=== PATIENT | male | born 1975 | race Caucasian/White ===

== ENCOUNTER 2019-05-14 13:03 | Emergency (ER) | payer OTHER ==
[~2019-05-14] VITALS: Ht 185.4 cm; Wt 117.0 kg
--- NOTE | 2019-05-14 14:19 | NUR ---
PT TO ROOM FROM LOBBY IN [facility] AT THIS TIME.
[2019-05-14] MEDS ORDERED: ASPIRIN 81 MG TABLET CHEW ONE (14:44)
--- NOTE | 2019-05-14 14:48 | NUR ---
PT HAS CO OF WEANKNESS, SOB, AND COUGH , PT STATES FOR A FEWS WEEK. PT RECIEVED ABX, TESSALON BELTRANLS, STERIODS OUTPATIENT. PT STILL HAVING SYMPTOMS. PT ON PROPERTY INSPECTOR. VS APPEAR STABLE. PT RESTING COMFORTABLE, ANSWERING QUESTIONS, AWAKE, ALERT. MEDICATED PER MD ORDERS. NO OTHER MEDICAL HX
[2019-05-14] MEDS ORDERED: ASPIRIN 81 MG TABLET CHEW PO ONE (15:00)
[2019-05-14 15:06] LABS: BASOPHILS # (AUTO) 0.02 x10^3/uL (0-0.1); BASOPHILS % (AUTO) 0 % (0-1); EOSINOPHILS # (AUTO) 0.11 x10^3/uL (0-0.4); EOSINOPHILS % (AUTO) 1 % (1-7); LYMPHOCYTES # (AUTO) 1.92 x10^3/uL (1-3.4); LYMPHOCYTES % (AUTO) 19 % (22-44); MD NO; MEAN CORPUSCULAR HEMOGLOBIN 29.4 pg (27.5-34.5); MEAN CORPUSCULAR HGB CONC 33.1 g/dL (33.2-36.2); MEAN CORPUSCULAR VOLUME 88.8 fL (81-97); MEAN PLATELET VOLUME 8.5 fL (7.4-10.4); MONOCYTES % (AUTO) 6 % (2-9); NEUTROPHILS # (AUTO) 7.41 x10^3/uL (1.8-6.8); NEUTROPHILS % (AUTO) 74 % (42-75); PLATELET COUNT 233 x10^3/uL (130-400); RED BLOOD COUNT 5.33 x10^6/uL (4.38-5.82)
[2019-05-14 15:18] LABS: ALBUMIN 4.1 g/dL (3.4-5.0); ANION GAP 9 mmol/L (5-15); CHLORIDE 111 mmol/L (98-107)
[2019-05-14 15:21] LABS: TROPONIN I < 0.015 ng/mL (0.000-0.045)
[2019-05-14 15:51] VITALS: BP 136/86
--- NOTE | 2019-05-14 16:28 | NUR ---
Patient/Caregiver given discharge instructions and they have confirmed that they understand the instructions. Patient ambulatory with steady gait.
== END 2019-05-14 17:13 | disposition home or self-care (01) ==
LOC: ED 15:35
DX: J45.909 Unspecified asthma, uncomplicated (principal)
CPT/HCPCS: 36415; 71046; 80048; 82040; 83880; 84484; 85025; 85379; 93005; 99284